=== PATIENT | female | born 1955 | race Caucasian/White ===

== ENCOUNTER → 2017-06-13 07:15 | Outpatient (CLI) | payer MEDICAID ==
[2012-11-15 07:34] VITALS: BMI 29.1
[~2017-06-13 07:15] MED LIST: BAYER ASPIRIN325 MG PO; CARAFATE1 G PO; CATAPRES0.1 MG PO; CELEXA20 MG PO; FLOVENT HFA 11012 GM INH; LISINOPRIL5 MG PO; PRILOSEC20 MG PO; ROBAXIN500 MG PO; TOPAMAX200 MG PO; VENTOLIN HFA18 GM INH; XANAX1 MG PO; ZOCOR40 MG PO
== END | disposition home or self-care (01) ==
LOC: D.MRI 07:15
DX: R10.11 Right upper quadrant pain (principal)